=== PATIENT | male | born 1980 | race Caucasian/White ===

== ENCOUNTER 2018-08-09 14:57 | Emergency (ER) | payer SELFPAY ==
[~2018-08-09] VITALS: Ht 182.9 cm; Wt 113.4 kg
[2018-08-09 15:22] VITALS: BP 165/86
--- NOTE | 2018-08-09 15:56 | PHYS DOC ---
Past Medical History Past Medical History: No Pertinent History Past Surgical History: Other Additional Past Surgical Histo: meniscus right knee, Inguenia hernia repair Additional Information: Quit April 2017. Alcohol Use: None Drug Use: Marijuana Adult General Chief Complaint Chief Complaint: LACERATION/AVULSION HPI HPI Patient is a 37 year old [male] who presents with laceration to right middle finger. Patient reports he had been using a box builder, when somebody particularly from him playing, lacerating his finger.. States he does have little bit of discomfort, has been bleeding since that time. Reports occurred approximately 90 minutes prior to coming to the ER. Reports last tetanus shot 2015 after a knee surgery. Patient also reports he has had poison iterra in his right arm for the past 4-5 days, reports seems to be spreading, he has a history of this and he is requesting some medications for this well. Review of Systems Review of Systems Constitutional: Denies fever or chills [] Eyes: Denies change in visual acuity, redness, or eye pain [] HENT: Denies nasal congestion or sore throat [] Respiratory: Denies cough or shortness of breath [] Cardiovascular: No additional information not addressed in HPI [] Musculoskeletal: Denies back pain or joint pain [] Integument: Denies rash reports laceration also reports poison tierra to right arm.[] Neurologic: Denies headache, focal weakness or sensory changes [] Endocrine: Denies polyuria or polydipsia [] All other systems were reviewed and found to be within normal limits, except as documented in this note. Current Medications Current Medications Current Medications Medications (Trade) Dose Ordered Sig/[facility] Start Time Stop Time Status Last Admin Dose Admin Lidocaine HCl (Xylocaine-Mpf 1% 5ml Vial) 5 ml 1X ONCE 08/09/18 16:00 08/09/18 16:01 DC 08/09/18 16:04 5 ML Allergies Allergies Allergies Coded Allergies Type Severity Reaction Last Updated Verified acetaminophen Adverse Reaction Intermediate nausea 04/08/15 Yes hydrocodone Adverse Reaction Intermediate nausea 04/08/15 Yes oxycodone Adverse Reaction Intermediate nausea 04/08/15 Yes Physical Exam Physical Exam Constitutional: Well developed, well nourished, no acute distress, non-toxic appearance. [] HENT: Normocephalic, atraumatic, bilateral external ears normal, oropharynx moist, no oral exudates, nose normal. [] Eyes: PERRLA, EOMI, conjunctiva normal, no discharge. [] Neck: Normal range of motion, no tenderness, supple, no stridor. [] Cardiovascular:Heart rate regular rhythm, no murmur [] Lungs & Thorax: Bilateral breath sounds clear to auscultation [] Abdomen: Bowel sounds normal, soft, no tenderness, no masses, no pulsatile masses. [] Skin: Warm, dry, no erythema, rash to right forearm, covering calamine lotion at this time. Approximately 2 cm laceration to right middle finger from base to middle phalangeal with extension laterally 1 cm. [] Back: No tenderness, no CVA tenderness. [] Extremities: No tenderness, no cyanosis, no clubbing, ROM intact, no edema. Full range of motion of digits, full sensation noted in digit [] Neurologic: Alert and oriented X 3, normal motor function, normal sensory function, no focal deficits noted. [] Psychologic: Affect normal, judgement normal, mood normal. [] Current Patient Data Vital Signs Vital Signs Date Time Temp Pulse Resp B/P (MAP) Pulse Ox O2 Delivery O2 Flow Rate FiO2 08/09/18 15:22 98.2 83 18 165/86 (112) 97 Room Air 98.2 EKG EKG [] Radiology/Procedures Radiology/Procedures [] Course & Med Decision Making Course & Med Decision Making Pertinent Labs and Imaging studies reviewed. (See chart for details) [] Dragon Disclaimer Dragon Disclaimer This electronic medical record was generated, in whole or in part, using a voice recognition dictation system. Departure Departure Impression: Primary Impression: Laceration of finger of right hand Additional Impression: Rhus dermatitis Disposition: 01 HOME, SELF-CARE Referrals: NO PCP (PCP) Patient Instructions: Laceration Care, Adult, [id number], Poison Tierra, [id number] Additional Instructions: As we discussed, keep your wound clean and dry today Try to avoid using a hammer tomorrow or laborious work with your hand Watch it for signs of infection, any pus, warmth, or swelling return to ER or follow up with your primary care provider Your stitches can come out in 7 days Take the steroids for your poison tierra. Continue using Calomine lotion as needed for discomfort Scripts Prednisone (PREDNISONE ) 10 Mg Tablet 10 MG PO DAILY for 14 Days, #14 TAB 0 Refills Prov: SANDRA REY APRN 08/09/18 Laceration Repair Lac Repair Indication: [Laceration] Procedure: The patient was placed in the appropriate position and anesthesia with 4ml 1% lidocaine via digital block of right middle finger. . The area was then [CLEANSED] and flushed with 100 ml sterile saline. The laceration was [closed with (7) 4/0 nylon simple interrupted sutures. The wound area was then dressed with [Gauze]. Total repaired wound length: [3.5 cm]. Other Items: [OTHER ITEMS] The patient tolerated the procedure [well]. Complications: [COMPLICATIONS]. Problem Qualifiers Primary Impression: Laceration of finger of right hand Encounter type: initial encounter Finger: middle finger Damage to nail status: without damage Foreign body presence: without foreign body Qualified Codes: S61.212A - Laceration without foreign body of right middle finger without damage to nail, initial encounter SANDRA REY APRN Aug 09, 2018 15:56
[2018-08-09] MEDS ORDERED: LIDOCAINE 1% PF 5 ML VIAL. INJ ONE (16:00)
[2018-08-09] MEDS ORDERED: PRED-220 PO (16:31)
== END 2018-08-09 16:58 | disposition home or self-care (01) ==
LOC: ER 14:57
DX: S61.212A Laceration without foreign body of right middle finger without damage to nail, initial encounter (principal); L23.7 Allergic contact dermatitis due to plants, except food; Z87.891 Personal history of nicotine dependence; Z88.5 Allergy status to narcotic agent; Z88.6 Allergy status to analgesic agent; W26.8XXA Contact with other sharp object(s), not elsewhere classified, initial encounter; Y93.89 Activity, other specified; Y92.89 Other specified places as the place of occurrence of the external cause; Y99.8 Other external cause status
CPT/HCPCS: 12002; 99283